=== PATIENT | female | born 1975 | race Caucasian/White ===

== ENCOUNTER 2018-11-14 00:12 | Emergency (ER) | payer BC, OTHER ==
[~2018-11-14] VITALS: Ht 170.2 cm; Wt 106.6 kg
[~2018-11-14 00:12] MED LIST: COUMADIN 3 MG TA3 M1 PO; LANTUS SUBQ; NOVOLOG MI100 UNIT/2 SQ; ULTRAM 50MG TAB50 MG PO
[2018-11-14 00:15] VITALS: BP 177/97
[2018-11-14 00:37] LABS: ABSOLUTE NEUTROPHILS 3.6 thou/uL (1.4-8.2); EOSINOPHILS 1.3 % (0.0-3.0); HEMATOCRIT 44.1 % (37.0-47.0); HEMOGLOBIN 15.5 gm/dL (12.0-15.0); LYMPHOCYTES 34.3 % (24.0-44.0); MCH 29.3 pg (26.0-34.0); MCHC 35.1 g/dL (28.0-37.0); MCV 83.5 fL (80.0-100.0); MONOCYTES 7.5 % (1.0-8.0); PLATELET COUNT 241 thou/uL (150-400); POLYS 55.9 % (36.0-66.0); RBC 5.28 mil/uL (4.20-5.00); RDW 13.2 % (10.5-14.5); WBC 6.4 thou/uL (4.0-11.0)
[2018-11-14 00:49] LABS: PROTIME 9.8 Seconds (9.3-11.4)
[2018-11-14 00:51] LABS: CALCIUM 9.8 mg/dL (8.5-10.1); CREATININE 0.8 mg/dL (0.6-1.0); POTASSIUM 3.8 mmol/L (3.5-5.1)
== END 2018-11-14 02:30 | disposition home or self-care (01) ==
LOC: ER 00:12
PROVIDERS: Student in an Organized Health Care Education/Training Program
DX: E11.65 Type 2 diabetes mellitus with hyperglycemia (principal); Z88.6 Allergy status to analgesic agent; Z88.0 Allergy status to penicillin; Z88.8 Allergy status to other drugs, medicaments and biological substances; Z79.4 Long term (current) use of insulin

== ENCOUNTER 2018-12-04 22:43 | Emergency (ER) | payer BC, OTHER ==
[~2018-12-04] VITALS: Ht 170.2 cm; Wt 104.3 kg
[2018-12-04] MEDS ORDERED: METFORMIN HCL500 MG PO (23:02)
[2018-12-04] MEDS ORDERED: COUMADIN7.5 MG PO (23:02)
[2018-12-04] MEDS ORDERED: HYDROCHLOROTHIA25 M2 PO (23:03)
[2018-12-04] MEDS ORDERED: LANTUS SUBQ (23:03)
[2018-12-04] MEDS ORDERED: HUMALOG100 UNIT/1 SUBQ (23:04)
[2018-12-04 23:18] LABS: ABSOLUTE NEUTROPHILS 3.2 thou/uL (1.4-8.2); BASOPHILS 0.7 % (0.0-2.0); EOSINOPHILS 1.3 % (0.0-3.0); HEMATOCRIT 40.5 % (37.0-47.0); HEMOGLOBIN 14.2 gm/dL (12.0-15.0); LYMPHOCYTES 35.2 % (24.0-44.0); MCH 29.3 pg (26.0-34.0); MCV 83.8 fL (80.0-100.0); PLATELET COUNT 213 thou/uL (150-400); POLYS 55.8 % (36.0-66.0); RBC 4.83 mil/uL (4.20-5.00); RDW 13.6 % (10.5-14.5); WBC 5.7 thou/uL (4.0-11.0)
[2018-12-04 23:29] LABS: ALBUMIN 3.3 g/dL (3.4-5.0); ANION GAP 11 mmol/L (7-16); BUN 14 mg/dL (7-18); CALCIUM 8.9 mg/dL (8.5-10.1); CHLORIDE 95 mmol/L (98-107); CO2 24 mmol/L (21-32); CREATININE 0.9 mg/dL (0.6-1.0); POTASSIUM 4.1 mmol/L (3.5-5.1); SGOT 24 U/L (15-37); SGPT 64 U/L (30-65); SODIUM 130 mmol/L (136-145); TOTAL BILIRUBIN 0.2 mg/dL (<0.1-1.0); TOTAL PROTEIN 7.4 g/dL (6.4-8.2); TROPONIN-I <0.06 ng/mL (<0.06)
[2018-12-04 23:33] LABS: GLUCOSE 517 mg/dL (74-106)
[2018-12-04 23:48] LABS: PROTIME 9.9 Seconds (9.3-11.4)
[2018-12-05] MEDS ORDERED: COUMADIN 5 MG TA5 M1 PO (00:41)
[2018-12-05 01:09] VITALS: BP 137/90
--- NOTE | 2018-12-06 09:28 | EKG ---
[place] [address] [facility] [place] [address] ELECTROCARDIOGRAM REPORT Name: SHIRA WILSON Room #: DEP JOSSELINE Smith#: [id number] ������������������ Admission: 12/04/18 ������������������ Attend Phys: Discharge: 12/05/18 ������������������ Date of : 75 Report #: [id number] ����������������������������������������������������������������� [id number] THIS REPORT FOR: //name// [facility] ED Test Date: 2018-12-04 Test Time: 22:50:51 Pat Name: SHIRA WILSON Department: Room: Gender: F Weld Fitter: neshafrankjanie : 1975 Requested By: Georges Mullins Order Number: [id number] MD: Biran Jacobo Measurements Intervals Shaniko Rate: 81 P: 45 MO: 197 QRS: 33 QRSD: 80 T: 26 QT: 375 QTc: 436 Interpretive Statements Sinus rhythm Normal tracing Compared to ECG 03/12/2017 22:27:06 No significant changes Electronically Signed On 12-06-2018 9:28:37 CDT by Brian Jacobo [email or web address] ��������������������������������������������� <ELECTRONICALLY SIGNED> ���������������������������������������� By: Brian Jacobo MD, [facility] ��������������������������������������������� 12/06/18 0928 2250 2250 Brian Jacobo MD, FACC /EPI
== END 2018-12-05 01:11 | disposition home or self-care (01) ==
LOC: ER 22:43
PROVIDERS: Emergency Medicine
DX: R07.89 Other chest pain (principal); R79.1 Abnormal coagulation profile; I10 Essential (primary) hypertension; E11.9 Type 2 diabetes mellitus without complications; Z88.6 Allergy status to analgesic agent; Z88.0 Allergy status to penicillin; Z88.8 Allergy status to other drugs, medicaments and biological substances; Z79.4 Long term (current) use of insulin